=== PATIENT | female | born 1965 | race Caucasian/White ===

== ENCOUNTER → 2019-04-10 13:11 | Outpatient (BNVA) | payer MEDICARE, MEDICAID, SELFPAY | PROVIDERS: Family Provider Family Medicine; PCP Family Medicine; Visit Provider Nurse Practitioner Psychiatric/Mental Health | DX: F25.1 Schizoaffective disorder, depressive type (principal); F12.20 Cannabis dependence, uncomplicated; F43.12 Post-traumatic stress disorder, chronic; F17.290 Nicotine dependence, other tobacco product, uncomplicated | CPT/HCPCS: 99213 ==

== ENCOUNTER 2019-06-03 22:56 | Emergency (ER) | payer MEDICARE, OTHER, SELFPAY ==
[2019-06-03 23:02] VITALS: BP 136/85; PULSE 97; RESP 18; TEMP 37; O2SAT 96; BMI 55.7
--- NOTE | 2019-06-03 23:25 | W.ED.BACK ---
HPI - Back Pain/Injury General: Chief Complaint: Back Pain/Injury Stated Complaint: back pain Time Seen by Provider: 06/03/19 23:05 Source: patient Mode of arrival: ambulatory Limitations: no limitations History of Present Illness: HPI Narrative: Patient is a 54-year-old female who presents to ED today with complaints of lower back pain. Patient states she was seated in her shower when she went to stand up and immediately felt excruciating lower back pain. Patient states she has an extensive history of chronic back pain related to degenerative disc disease. She states she normally tries to treat her pain holistically. Patient reports pain seems to radiate down into bilateral lower extremities. She has not noticed any groin tingling. She has not had any problems defecating or urinating. Pain seems to be worse with ambulation. MD elicited complaint: back pain Pertinent past history: prior back pain Onset (ago): hour(s) Timing: constant Similar Symptoms Previously: Yes Quality: burning and sharp Location: lumbar spine Radiation: left leg below the knee and right leg below the knee Exacerbating factors: movement Relieving factors: none Associated symptoms: Reports no associated symptoms; Deny chills or fever(s) Review of Systems Const: Denies: fever or chills Musc: Reports: back pain; Denies: neck pain, extremity pain, extremity swelling, joint pain or joint swelling Neuro: Denies: headache, numbness in extremities, weakness in extremities or changes in sensation PFS ED PFSH: Medical History (Updated 06/04/19 @ 00:25 by UCHE Don) Asthma Cannabis dependence with current use Chronic post-traumatic stress disorder Diabetic neuropathy associated with type 2 diabetes mellitus Hypertension Nicotine dependence, other tobacco product, uncomplicated Schizoaffective disorder, depressive type with good prognostic features Seasonal allergies Well controlled type 2 diabetes mellitus Social History (Updated 04/10/19 @ 14:03 by Christelle Dumont LPN) Smoking and tobacco status: former smoker Physical Exam Const: COMMON NORMALS: no apparent distress, oriented x3, no limitations and alert NUTRITIONAL APPEARANCE: obese morbidly obese ORIENTATION/CONSCIOUSNESS: Yes oriented to person, Yes oriented to place and Yes oriented to time Back/Pelvis: THORACIC SPINE/UPPER BACK: Yes normal to inspection and No thoracic spinal tenderness LUMBAR SPINE/LOWER BACK: Yes lumbar spinal tenderness Lumbar spinal tenderness location: L4 and L5 SACROILIAC JOINTS: Yes SI joints normal Extremity: COMMON NORMALS: normal to inspection and full ROM Neuro: COMMON NORMALS: oriented x3, moves all extremities, no focal motor deficits, no sensory deficits noted and gait normal (uses rolling walker ) SENSORIUM/ORIENTATION: Yes alert, Yes oriented to person, Yes oriented to place and Yes oriented to time Course Vital Signs: Vital signs: Vital Signs Temperature 98.6 F 06/03/19 23:02 Pulse Rate 97 06/03/19 23:02 Respiratory Rate 18 06/03/19 23:38 Blood Pressure 136/85 06/03/19 23:02 Pulse Oximetry 96 06/03/19 23:38 MDM - Back Pain/Injury MDM Narrative: Medical decision making narrative: Patient does not have any acute neurological deficits at this time. I do not feel emergent CT imaging of her back is warranted as it is overall not going to change my management. Patient reports feeling much better after medications given here. She will be treated with pain medications at home as well as steroids and muscle relaxers. Recommend she follow-up with PCP in approximately a week for continued pain. Discharge Plan Discharge Patient Disposition: Home, Self-Care Clinical Impression: Acute low back pain Qualifiers: Back pain laterality: midline Sciatica presence: without sciatica Qualified Code(s): M54.5 - Low back pain Condition: Stable Prescriptions: New cyclobenzaprine 10 mg tablet 10 mg PO TID Qty: 14 RF: 0 prednisone 10 mg tablet 60 mg PO DAILY 5 Days Qty: 30 RF: 0 hydrocodone-acetaminophen 5-325 mg tablet 1 tab PO Q6H PRN (Reason: pain) Qty: 14 RF: 0 diclofenac sodium 50 mg tablet,delayed release (DR/EC) 50 mg PO Q12H PRN (Reason: pain) Qty: 20 RF: 0 No Action amlodipine 10 mg tablet 10 mg PO QDAY 90 Days Qty: 90 RF: 1 albuterol sulfate 90 mcg/actuation HFA aerosol inhaler 2 puff INHALATION Q6H PRN (Reason: shortness of breath or wheezing) 90 Days Qty: 54 RF: 1 cetirizine 10 mg capsule 10 mg PO DAILY 90 Days Qty: 90 RF: 1 fluticasone propionate 50 mcg/actuation spray,suspension 1 spray INTRANASAL BID 90 Days Qty: 54.6 RF: 1 furosemide [Lasix] 20 mg tablet 20 mg PO QAM PRN (Reason: edema) 90 Days Qty: 60 RF: 1 lisinopril-hydrochlorothiazide 20-12.5 mg tablet 1 tab PO QDAY 90 Days Qty: 90 RF: 1 gabapentin 600 mg tablet 600 mg PO TID 90 Days Qty: 270 RF: 1 fluoxetine [Prozac] 40 mg capsule 80 mg PO QAM Qty: 180 RF: 2 risperidone [Risperdal] 2 mg tablet 2 mg PO BID Qty: 180 RF: 2 trazodone 150 mg tablet 150 mg PO .bedtime PRN (Reason: sleep) Qty: 60 RF: 2 Discharge Orders: Discharge Order (Routine); Ordered 06/04/19 Ordered By: Chantel Man Referrals: Milana Sherwood DO [Family Provider] - Discharge Diet: Usual diet Discharge Activity: Increase activity as tolerated Coding Level of Care Code ED Neurology Stroke Physician for Andrea Fwezra Exam Problem Focused
[2019-06-03] MEDS: dexamethasone 10 mg/mL INJ IM (23:35)
[2019-06-03 23:38] VITALS: RESP 18; O2SAT 96
[2019-06-03] MEDS: morphine 4 mg/mL SDV 1 mL 6 MG IM (23:38)
[2019-06-03] MEDS: ketorolac 60 mg/2 mL INJ IM (23:39)
[2019-06-03] MEDS: orphenadrine 30 mg/mL Inj 2 mL 60 MG IM (23:39)
[2019-06-04 00:49] VITALS: PULSE 94; RESP 18; O2SAT 97
== END 2019-06-04 00:50 | disposition home or self-care (01) ==
PROVIDERS: Emergency Provider Physician Assistant; Family Provider Family Medicine
DX: M54.5 Low back pain (principal); J45.909 Unspecified asthma, uncomplicated; E11.40 Type 2 diabetes mellitus with diabetic neuropathy, unspecified; I10 Essential (primary) hypertension; E66.01 Morbid (severe) obesity due to excess calories; Z68.43 Body mass index [BMI] 50.0-59.9, adult; Z79.51 Long term (current) use of inhaled steroids; Z87.891 Personal history of nicotine dependence
CPT/HCPCS: 12345; 96372; 99281; 99283; J1100; J1885; J2270; J2360

== ENCOUNTER → 2019-07-16 10:44 | Outpatient (BNVA) | payer MEDICARE, MEDICAID, SELFPAY | PROVIDERS: Family Provider Family Medicine; Visit Provider Emergency Medicine | DX: J40 Bronchitis, not specified as acute or chronic (principal); J06.9 Acute upper respiratory infection, unspecified; Z11.59 Encounter for screening for other viral diseases | CPT/HCPCS: 87400; 87635 ==

== ENCOUNTER → 2019-07-28 08:28 | Outpatient (BNVA) | payer MEDICARE, MEDICAID, SELFPAY | PROVIDERS: Family Provider Family Medicine; Visit Provider Nurse Practitioner Psychiatric/Mental Health | DX: F25.1 Schizoaffective disorder, depressive type (principal); F12.20 Cannabis dependence, uncomplicated; F43.12 Post-traumatic stress disorder, chronic; F17.290 Nicotine dependence, other tobacco product, uncomplicated; F17.210 Nicotine dependence, cigarettes, uncomplicated | CPT/HCPCS: 99213 ==

== ENCOUNTER → 2019-11-18 15:42 | Outpatient (BNVA) | payer MEDICAID, SELFPAY | PROVIDERS: Family Provider Family Medicine; Visit Provider Family Medicine | DX: E11.9 Type 2 diabetes mellitus without complications (principal); F25.1 Schizoaffective disorder, depressive type; J44.9 Chronic obstructive pulmonary disease, unspecified; I10 Essential (primary) hypertension | CPT/HCPCS: 80053; 80061; 83036; 85025 ==

== ENCOUNTER 2019-11-21 22:00 | Emergency (ER) | payer MEDICARE, MEDICAID, SELFPAY ==
[2019-11-21 22:15] VITALS: BP 156/86; PULSE 70; RESP 18; TEMP 36.4; O2SAT 95
--- NOTE | 2019-11-22 00:45 | W.ED.BACK ---
HPI - Back Pain/Injury General: Chief Complaint: Back Pain/Injury Stated Complaint: back pain Time Seen by Provider: 11/22/19 00:45 Source: patient Mode of arrival: ambulatory Limitations: no limitations History of Present Illness: HPI Narrative: Patient comes in today for complaints of low back pain. Patient had put a cabinet on the back of her pickup truck when the top drawer came out causing her to fall back onto her butt. Since then patient has had some increased back pain. Patient appears well. Patient does have a history of chronic back pain. MD elicited complaint: back injury and fall Review of Systems General: Reports: 10 or more systems reviewed and unremarkable except in HPI and below Musc: Reports: back pain PFS ED PFSH: Medical History (Updated 11/22/19 @ 02:16 by REBEKA Butcher) Asthma Cannabis dependence with current use Chronic post-traumatic stress disorder Diabetic neuropathy associated with type 2 diabetes mellitus Hypertension Nicotine dependence, cigarettes, uncomplicated Schizoaffective disorder, depressive type with good prognostic features Seasonal allergies Well controlled type 2 diabetes mellitus Family History Mother Hypertension Hyperlipidemia Cancer Father Hypertension Hyperlipidemia Grandfather Diabetes Hyperlipidemia Cancer Grandmother Diabetes Hyperlipidemia Cancer Social History Smoking and tobacco status: former smoker Second hand smoke exposure: No Alcohol intake: current Alcohol intake frequency: holidays/special occasions only Desire information about alcohol rehabilitation?: No Counseling given: No Desire information about substance/drug rehabilitation?: No Marital status: / History of recent travel: No Current gender identity: Female Female Reproductive History: Spontaneous abortions: No Physical Exam Const: COMMON NORMALS: no acute distress and patient oriented x3 GENERAL APPEARANCE: cooperative HENMT: COMMON NORMALS: normocephalic and Normal external nose present HEAD & SCALP: normal to inspection and normocephalic NOSE: Normal external nose present MOUTH: Normal oral and palatal mucosa present Eye: GENERAL EYE: appearance normal, both eyes and all related structures Neck/C-Spine: COMMON NORMALS: full ROM Chest: COMMONS NORMALS: normal inspection of the chest Resp: COMMON NORMALS: normal respiratory effort EFFORT & INSPECTION: Yes able to speak in complete sentences Cardio: COMMON NORMALS: regular rate and regular rhythm RATE: regular rate RHYTHM: regular rhythm GI: COMMON NORMALS: non-tender Back/Pelvis: THORACIC SPINE/UPPER BACK: Yes paraspinal muscle tenderness LUMBAR SPINE/LOWER BACK: Yes lumbar spinal tenderness Lumbar spinal tenderness location: L5 (l5-s1) and Yes paraspinal muscle tenderness Extremity: COMMON NORMALS: normal to inspection Neuro: COMMON NORMALS: patient oriented x3 and moves all extremities Psych: COMMON NORMALS: mental status grossly normal and cooperative Skin: COMMON NORMALS: no rashes or lesions noted GENERAL SKIN EXAM: no rashes or lesions noted Course Vital Signs: Vital signs: Vital Signs Temperature 97.6 F 11/21/19 22:15 Pulse Rate 78 11/22/19 02:00 Respiratory Rate 18 11/22/19 02:00 Blood Pressure 151/86 11/22/19 02:00 Pulse Oximetry 93 11/22/19 02:00 MDM - Back Pain/Injury MDM Narrative: Medical decision making narrative: Patient comes in for evaluation of back pain after a fall this afternoon. On exam patient has muscle tenderness in her thoracic and lumbar spine. No vertebral point tenderness is noted. Patient does report some tenderness at the L5-S1 area. Patient is guarded with movement due to back pain. Differential diagnosis includes compression fracture of the vertebra, muscle strain, intervertebral disc disease, facet arthropathy. X-ray noted no fracture. Patient was given an injection of Toradol and orphenadrine and 1 hydrocodone 5?3 25. Reviewed exam with patient with recommendations for treatment and follow-up. Patient reported understanding agreed to plan. Reassured patient no fracture was noted that this is probably a aggravation of her chronic back problems, patient reports understanding. Discharge Plan Discharge Patient Disposition: Home Clinical Impression: Degeneration, intervertebral disc, lumbar Fall Qualifiers: Encounter type: initial encounter Qualified Code(s): W19.XXXA - Unspecified fall, initial encounter Back pain Qualifiers: Back pain location: low back pain Chronicity: unspecified Back pain laterality: unspecified Sciatica presence: without sciatica Qualified Code(s): M54.5 - Low back pain Condition: Stable Prescriptions: New hydrocodone-acetaminophen 5-325 mg tablet 1 tab PO Q8H PRN (Reason: pain (scale score 7-10)) Qty: 15 RF: 0 tizanidine 4 mg tablet 4 mg PO Q8H PRN (Reason: muscle spasticity) Qty: 15 RF: 0 No Action trazodone 150 mg tablet 150 mg PO .bedtime PRN (Reason: sleep) Qty: 180 RF: 2 risperidone [Risperdal] 2 mg tablet 2 mg PO BID Qty: 180 RF: 2 fluoxetine [Prozac] 40 mg capsule 80 mg PO QAM Qty: 180 RF: 2 amlodipine 10 mg tablet 10 mg PO QDAY 90 Days Qty: 90 RF: 1 cetirizine 10 mg capsule 10 mg PO DAILY 90 Days Qty: 90 RF: 1 fluticasone propionate 50 mcg/actuation spray,suspension 1 spray INTRANASAL BID 90 Days Qty: 54.6 RF: 1 furosemide [Lasix] 20 mg tablet 20 mg PO QAM PRN (Reason: edema) 90 Days Qty: 60 RF: 1 lisinopril-hydrochlorothiazide 20-12.5 mg tablet 1 tab PO QDAY 90 Days Qty: 90 RF: 1 gabapentin 600 mg tablet 600 mg PO TID 90 Days Qty: 270 RF: 1 risperidone 1 mg tablet 1 mg PO .3x day RF: 0 cyclobenzaprine 10 mg tablet 10 mg PO TID Qty: 14 RF: 0 hydrocodone-acetaminophen 5-325 mg tablet 1 tab PO Q6H PRN (Reason: pain) Qty: 14 RF: 0 diclofenac sodium 50 mg tablet,delayed release (DR/EC) 50 mg PO Q12H PRN (Reason: pain) Qty: 20 RF: 0 Discharge Orders: Discharge Order (Routine); Ordered 11/22/19 Ordered By: Felton Palmer Referrals: Sandy Mae MD [Primary Care Provider] - Discharge Diet: Usual diet Discharge Activity: Increase activity as tolerated Patient Instructions: Acute Low Back Pain (ED) Activity Restrictions/Additional Instructions: Continue with routine medications. Use hydrocodone as needed for breakthrough pain. Follow-up with primary care for recheck in 1 week. Return to the emergency department for new concerns. Coding Level of Care Code ED Orthopedic Shoes Salesperson for Andrea Fwd Exam Comprehensive
[2019-11-22 00:57] VITALS: BP 156/86; PULSE 77; RESP 17; O2SAT 92
--- NOTE | 2019-11-22 01:00 | XRR_ITS ---
PROCEDURE INFORMATION: Exam: XR Lumbosacral Spine, 2 or 3 Views Exam date and time: 11/22/2019 1:54 AM Age: 54 years old Clinical indication: Injury or trauma; Fall; Initial encounter; Blunt trauma (contusions or hematomas) TECHNIQUE: Imaging protocol: XR of the lumbosacral spine, 2 or 3 views. COMPARISON: CT Abdomen/Pelvis Renal [id number] 07/15/2016 7:30 PM FINDINGS: Vertebrae: Normal. No acute fracture. Normal alignment. Straightening of the lumbar curve is present suggesting spasm versus positioning. Osteophytes are seen at multiple levels. The disc heights are reduced from L1-S1 level. Soft tissues: Unremarkable. XR/XR lumbar spine 2-3V* [id number] IMPRESSION: No fracture or subluxation is seen. Extensive degenerative changes are present.
[2019-11-22] MEDS: HYDROcodone-acetaminophen 7.5-325 mg Tablet 1 TAB PO (01:20)
[2019-11-22] MEDS: ketorolac 30 mg/mL INJ IM (01:21)
[2019-11-22] MEDS: orphenadrine 30 mg/mL Inj 2 mL 60 MG IM (01:23)
[2019-11-22 02:00] VITALS: BP 151/86; PULSE 78; RESP 18; O2SAT 93
[2019-11-22 02:31] VITALS: BP 138/93; PULSE 77; RESP 18; TEMP 36.4; O2SAT 98
== END 2019-11-22 02:32 | disposition home or self-care (01) ==
PROVIDERS: Emergency Provider Nurse Practitioner Family; PCP Family Medicine
DX: M51.36 Other intervertebral disc degeneration, lumbar region (principal); E11.40 Type 2 diabetes mellitus with diabetic neuropathy, unspecified; I10 Essential (primary) hypertension; Z87.891 Personal history of nicotine dependence
CPT/HCPCS: 12345; 72100; 96372; 99281; 99283; J1885; J2360

== ENCOUNTER → 2019-11-24 08:10 | Outpatient (BNVA) | payer MEDICARE, MEDICAID, SELFPAY | PROVIDERS: PCP Family Medicine; Visit Provider Nurse Practitioner Psychiatric/Mental Health | DX: F25.1 Schizoaffective disorder, depressive type (principal); F12.20 Cannabis dependence, uncomplicated; F43.12 Post-traumatic stress disorder, chronic | CPT/HCPCS: 99214 ==

== ENCOUNTER → 2019-12-05 10:15 | Outpatient (BNVA) | payer MEDICARE, MEDICAID, SELFPAY | PROVIDERS: PCP Family Medicine; Visit Provider Emergency Medicine | DX: I05.9 Rheumatic mitral valve disease, unspecified (principal); R60.9 Edema, unspecified; E11.9 Type 2 diabetes mellitus without complications; E78.5 Hyperlipidemia, unspecified; I10 Essential (primary) hypertension; J45.20 Mild intermittent asthma, uncomplicated | CPT/HCPCS: 80048; 80061; 83880 ==

== ENCOUNTER → 2019-12-17 10:13 | Outpatient (BNVA) | payer MEDICARE, SELFPAY | PROVIDERS: Family Provider Family Medicine; Visit Provider Family Medicine | DX: I50.9 Heart failure, unspecified (principal) | CPT/HCPCS: 80048 ==

== ENCOUNTER → 2019-12-22 07:57 | Outpatient (BNVA) | payer MEDICARE, MEDICAID, SELFPAY | PROVIDERS: Family Provider Family Medicine; Visit Provider Nurse Practitioner Psychiatric/Mental Health | DX: F25.1 Schizoaffective disorder, depressive type (principal); F12.20 Cannabis dependence, uncomplicated; F43.12 Post-traumatic stress disorder, chronic | CPT/HCPCS: 99214 ==

== ENCOUNTER 2020-03-12 19:46 | Emergency (ER) | payer MEDICARE, MEDICAID, SELFPAY ==
[2020-01-09 14:42] VITALS: BP 120/78; BMI 60.8
[2020-03-12 19:49] VITALS: BP 153/106; PULSE 91; RESP 18; O2SAT 94; BMI 60.2
--- NOTE | 2020-03-12 19:56 | PC.NURSE ---
placed in adult c-collar
[2020-03-12 20:10] VITALS: BP 137/80; TEMP 36.7
--- NOTE | 2020-03-12 20:27 | CTR_ITS ---
PROCEDURE INFORMATION: Exam: CT Lumbar Spine Without Contrast Exam date and time: 03/12/2020 8:41 PM Age: 55 years old Clinical indication: Low back pain; Prior surgery; Patient HX: Fall out of truck this p. M. C/O back pain with bilateral leg numbness. ; Additional info: Fall, back pain, paresthesia TECHNIQUE: Imaging protocol: Computed tomography images of the lumbar spine without contrast. Radiation optimization: All CT scans at this facility use at least one of these dose optimization techniques: automated exposure control; mA and/or kV adjustment per patient size (includes targeted exams where dose is matched to clinical indication); or iterative reconstruction. COMPARISON: CR XR lumbar spine 2-3V* [id number] 11/22/2019 1:39 AM RADIATION DOSE METRICS: Total DLP (mGy-cm): 2137.22 FINDINGS: The vertebral bodies are normally aligned. There is no evidence of fracture or subluxation. The vertebral bodies are of normal height. There is disc space narrowing throughout the lumbar spine. There is endplate spurring. There are degenerative changes of facet joints. There are degenerative changes about the sacroiliac joints. Bony sacrum appears intact. There is posterior osseous ridging and disc bulging at L1-L2, L2-L3 and L3-L4. There is diffuse disc bulging at L4-L5. There is posterior osseous ridging and disc bulging at L5/S1. There is moderate central stenosis at L1-L2. There is moderate central stenosis at L2-L3. There is severe central stenosis at L3-L4 and L4-L5. There is moderate central stenosis at L5/S1 CT/CT lumbar spine wo con* [id number] IMPRESSION: 1. There is no evidence of fracture or subluxation. 2. Spondylitic and discogenic changes producing severe central stenosis at L3-L4 and L4-L5. There is also moderate central stenosis at L1-L2, L2-L3 and L5/S1 Radiation Dose CTDIVOL = (mGy): DLP = 2137.22 (mGy-cm)
--- NOTE | 2020-03-12 20:27 | CTR_ITS ---
PROCEDURE INFORMATION: Exam: CT Thoracic Spine Without Contrast Exam date and time: 03/12/2020 8:41 PM Age: 55 years old Clinical indication: Pain in thoracic spine; Patient HX: Fall out of truck this p. M. C/O back pain with bilateral leg numbness. ; Additional info: Fall, back pain, paresthesia TECHNIQUE: Imaging protocol: Computed tomography images of the thoracic spine without contrast. Radiation optimization: All CT scans at this facility use at least one of these dose optimization techniques: automated exposure control; mA and/or kV adjustment per patient size (includes targeted exams where dose is matched to clinical indication); or iterative reconstruction. COMPARISON: CR Thoracic Spine 3+ views* [id number] 03/31/2013 10:27 AM RADIATION DOSE METRICS: Total DLP (mGy-cm): 3058.51 FINDINGS: The vertebral bodies are normally aligned. There is no evidence of fracture or subluxation. The vertebral bodies are of normal height. There is desiccation of the discs of the lower thoracic spine. There is endplate spurring at multiple levels. There is suggestion of a hemangioma involving T6. Pedicles are intact. There is no paravertebral soft tissue mass. There is no evidence for traumatic disc protrusion. There is no significant central stenosis. There is no evidence for epidural hematoma. CT/CT thoracic spin wo con* [id number] IMPRESSION: There is no evidence of fracture or subluxation. Radiation Dose CTDIVOL = (mGy): DLP = 3058.51 (mGy-cm)
--- NOTE | 2020-03-12 20:27 | CTR_ITS ---
PROCEDURE INFORMATION: Exam: CT Cervical Spine Without Contrast Exam date and time: 03/12/2020 8:41 PM Age: 55 years old Clinical indication: Neck pain; Patient HX: Fall out of truck this p. M. C/O back pain with bilateral leg numbness. ; Additional info: Fall, neck pain, paresthesia TECHNIQUE: Imaging protocol: Computed tomography images of the cervical spine without contrast. Radiation optimization: All CT scans at this facility use at least one of these dose optimization techniques: automated exposure control; mA and/or kV adjustment per patient size (includes targeted exams where dose is matched to clinical indication); or iterative reconstruction. COMPARISON: No relevant prior studies available. RADIATION DOSE METRICS: Total DLP (mGy-cm): 872.96 FINDINGS: The vertebral bodies are normally aligned. There is no evidence of fracture or subluxation. The vertebral bodies are of normal height. The disc spaces are well-maintained. There is anterior endplate spurring at multiple levels. The prevertebral soft tissues and the predental space are unremarkable. There is no significant central stenosis. There is no evidence for epidural hematoma. There are degenerative changes of facet joints and uncovertebral joints. The lung apices are clear. There is a 10 mm hypodensity within the right lobe of the thyroid gland. This does not require any further follow-up based on size criteria. CT/CT cervical spin wo con* [id number] IMPRESSION: There is no evidence of fracture or subluxation. Radiation Dose CTDIVOL = (mGy): DLP = 872.96 (mGy-cm)
[2020-03-12 20:41] VITALS: RESP 16
[2020-03-12] MEDS: fentaNYL 50 mcg/mL INJ 2mL 100 MCG IVP (20:41)
[2020-03-12 21:39] VITALS: BP 142/75; PULSE 80; RESP 16; O2SAT 92
--- NOTE | 2020-03-12 22:14 | ED_ITS ---
HPI - Back Pain/Injury General: Chief Complaint: Back Pain/Injury Stated Complaint: fall/can't feel feet/arm Time Seen by Provider: 03/12/20 20:14 Source: patient Mode of arrival: ambulatory Limitations: no limitations History of Present Illness: HPI Narrative: Patient is a 55-year-old with a history of chronic back pain and has had some back surgery, spinal back injections and nerve ablations. She was sitting in a diesel truck and opened the back door and since fell out of the truck. She fell from a height of about 3 feet. She landed on her buttocks and immediately had pain from her lower spine to her neck. She did not hit her head and did not lose consciousness. When she fell she had a whiplash kind of movement of her neck. She is here to be evaluated. She does have some tingling and paresthesia in her left upper extremity as well as some numbness in her lower extremities. No fecal or urinary incontinence. No perianal anesthesia MD elicited complaint: back pain and fall Pertinent past history: prior back pain Onset (ago): hour(s) (3) Timing: constant Severity: severe Quality: sharp Location: lumbar spine and thoracic spine Radiation: none Exacerbating factors: movement Relieving factors: none Context: fall Associated symptoms: Reports arthralgias, difficulty walking, numbness and tingling/numbness/burning; Deny abdominal pain, chills, change in bowel habits, dysuria, fatigue, fecal incontinence, fever(s), hematuria, myalgias, nausea, syncope, urinary frequency, urinary urgency, vomiting or weakness Review of Systems General: Reports: 10 or more systems reviewed and unremarkable except in HPI and below Const: Denies: fever(s), chills or fatigue Eyes: Denies: change in vision or blurry vision ENMT: Denies: throat pain, enlarged tonsils, odynophagia, hoarseness, mouth pain or swelling of lips/tongue Card: Denies: syncope Resp: Denies: dyspnea, productive cough or non-productive cough GI: Denies: abdominal pain, nausea, vomiting, fecal incontinence or change in bowel habits : Denies: dysuria, urinary urgency or hematuria Musc: Denies: neck pain, back pain or extremity swelling Skin/Breast: Denies: rash, pruritus or erythema Neuro: Reports: difficulty walking Endo: Denies: polyuria, polydipsia or tired all the time PFSH ED PFSH: Medical History Asthma Cannabis dependence with current use CHF (congestive heart failure) Chronic post-traumatic stress disorder Diabetic neuropathy associated with type 2 diabetes mellitus Hyperlipidemia Hypertension Mitral valve disease Peripheral edema Schizoaffective disorder, depressive type with good prognostic features Seasonal allergies Well controlled type 2 diabetes mellitus Family History Mother Hypertension Hyperlipidemia Cancer Father Hypertension Hyperlipidemia Grandfather Diabetes Hyperlipidemia Cancer Grandmother Diabetes Hyperlipidemia Cancer Social History Smoking and tobacco status: former smoker Second hand smoke exposure: No Alcohol intake: current Alcohol intake frequency: holidays/special occasions only Desire information about alcohol rehabilitation?: No Counseling given: No Desire information about substance/drug rehabilitation?: No Marital status: / History of recent travel: No Current gender identity: Female Female Reproductive History: Spontaneous abortions: No Physical Exam Const: COMMON NORMALS: no acute distress, average body habitus, patient oriented x3, no limitations, healthy appearing, alert and well nourished HENMT: COMMON NORMALS: normocephalic, atraumatic and moist oral mucous membranes HEAD & SCALP: normocephalic and atraumatic Eye: COMMON NORMALS: Equal, round and reactive pupils present, EOMs intact bilaterally, conjunctivae normal and no scleral icterus CONJUNCTIVA: Yes conjunctivae normal PUPIL: Yes Equal, round and reactive pupils present Neck/C-Spine: COMMON NORMALS: full ROM, supple, no meningeal signs, no JVD and No carotid bruits CERVICAL SPINE: Yes pain with cervical ROM, Yes Cervical spine tenderness, No step off deformity and Yes Paracervical muscle tenderness Resp: COMMON NORMALS: normal respiratory effort, No retractions, No use of accessory muscles, clear to auscultation bilaterally and percussion normal AUSCULTATION: clear to auscultation bilaterally PERCUSSION: percussion normal Cardio: COMMON NORMALS: no JVD, regular rate, regular rhythm, S1 normal heart sound present, S2 normal heart sound present, No gallops present (Cardio), No clicks present (Cardio), No murmurs present (Cardio), No rub (Cardio) and Peripheral pulses 2+ throughout RATE: regular rate RHYTHM: regular rhythm HEART SOUNDS: S1 normal heart sound present and S2 normal heart sound present PERIPHERAL PULSES: Peripheral pulses 2+ throughout GI: COMMON NORMALS: Normal to inspection, nondistended, normoactive bowel sounds present, Soft to palpation, non-tender, No hepatosplenomegaly present, no masses and no bruits PALPATION: Yes Soft to palpation and Yes No hepatos plenomegaly present Back/Pelvis: THORACIC SPINE/UPPER BACK: Yes thoracic ROM normal and Yes parasp inal muscle tenderness LUMBAR SPINE/LOWER BACK: Yes lumbar spinal tenderness and Yes paraspinal muscle tenderness Extremity: COMMON NORMALS: normal to inspection, full ROM, capillary refill normal, no calf tenderness and no pedal edema Neuro: COMMON NORMALS: patient oriented x3 SENSORIUM/ORIENTATION: Yes alert MENINGEAL SIGNS: Yes no meningeal signs Skin: COMMON NORMALS: no rashes or lesions noted, no wounds, turgor normal, no jaundice, no petechiae and no mottling GENERAL SKIN EXAM: no rashes or lesions noted and turgor normal Course Reevaluation(s): Reevaluation #1: Discussed her imaging findings with her. Negative for acute fracture or dislocation. She does have some stenosis of the lumbar spine but those are chronic. Her pain is much improved although she still has some paresthesias. I believe that is probably due to neuropraxia and I expect she should recover. I explained to her things to look out for including fecal or urinary incontinence, leg weakness, which would be a sign of spinal cord injury. If she has any of those symptoms she needs to be seen emergently. She voiced understanding and is in agreement with the plan. We will discharge her home with a prescription for some pain medicine. Time: 22:14 Vital Signs: Vital signs: Vital Signs Temperature 98.0 F 03/12/20 20:10 Pulse Rate 79 03/12/20 22:30 Respiratory Rate 16 03/12/20 22:30 Blood Pressure 127/78 03/12/20 22:30 Pulse Oximetry 91 03/12/20 22:30 MDM - Back Pain/Injury MDM Narrative: Medical decision making narrative: 55-year-old female patient with chronic back pain who fell about 3 feet from a truck and landed on her buttocks. She had a lot of pain and some paresthesia and numbness. Evaluation in the emergency department with CT of her cervical spine, lumbar spine, thoracic spine were all negative for acute fracture or dislocation. She has chronic changes in her lumbar spine. Pain improved with pain medication and she is discharged home with a prescription for pain medication. I believe her neurologic symptoms are probably neuropraxia from the fall. She is to follow-up with her primary care provider or return for any concerns. Medical Records: Attestation: I reviewed the patient's medical records. Imaging Data^: Other CT: Radiologist's impression: [employer] [place] [address] CT Scan Report Signed Patient: Beryl Mclain #: [id number] : 1965Acct#:[id number] Age/Sex: 55 / FADM Date: 03/12/20 Loc: ERRoom/Bed: Attending Dr: Ordering Provider/Ordering MD: Bharath Avila MD, [facility] [place] Date of Service: 03/12/20 Procedure(s): CT cervical spin wo con* [id number] Accession Number(s): [id number] Report Number: [id number] PROCEDURE INFORMATION: Exam: CT Cervical Spine Without Contrast Exam date and time: 03/12/2020 8:41 PM Age: 55 years old Clinical indication: Neck pain; Patient HX: Fall out of truck this p. M. C/O back pain with bilateral leg numbness. ; Additional info: Fall, neck pain, paresthesia TECHNIQUE: Imaging protocol: Computed tomography images of the cervical spine without contrast. Radiation optimization: All CT scans at this facility use at least one of these dose optimization techniques: automated exposure control; mA and/or kV adjustment per patient size (includes targeted exams where dose is matched to clinical indication); or iterative reconstruction. COMPARISON: No relevant prior studies available. RADIATION DOSE METRICS: Total DLP (mGy-cm): 872.96 FINDINGS: The vertebral bodies are normally aligned. There is no evidence of fracture or subluxation. The vertebral bodies are of normal height. The disc spaces are well-maintained. There is anterior endplate spurring at multiple levels. The prevertebral soft tissues and the predental space are unremarkable. There is no significant central stenosis. There is no evidence for epidural hematoma. There are degenerative changes of facet joints and uncovertebral joints. The lung apices are clear. There is a 10 mm hypodensity within the right lobe of the thyroid gland. This does not require any further follow-up based on size criteria. CT/CT cervical spin wo con* [id number] IMPRESSION: There is no evidence of fracture or subluxation. Radiation Dose CTDIVOL = (mGy): DLP = 872.96 (mGy-cm) Dictated By:Mega Nice MD Signed By:Mega Nice MDSigned Date/Time:03/12/202121 DD/ [address] [employer] [address] [address] Scan Report Signed Patient: Beryl Mclain AUnstella #: [id number] : 1965Acct#:[id number] Age/Sex: 55 / FADM Date: 03/12/20 Loc: ERRoom/Bed: Attending Dr: Ordering Provider/Ordering MD: Bharath Avila MD, [facility] [place] Date of Service: 03/12/20 Procedure(s): CT lumbar spine wo con* [id number] Accession Number(s): [id number] Report Number: [id number] PROCEDURE INFORMATION: Exam: CT Lumbar Spine Without Contrast Exam date and time: 03/12/2020 8:41 PM Age: 55 years old Clinical indication: Low back pain; Prior surgery; Patient HX: Fall out of truck this p. M. C/O back pain with bilateral leg numbness. ; Additional info: Fall, back pain, paresthesia TECHNIQUE: Imaging protocol: Computed tomography images of the lumbar spine without contrast. Radiation optimization: All CT scans at this facility use at least one of these dose optimization techniques: automated exposure control; mA and/or kV adjustment per patient size (includes targeted exams where dose is matched to clinical indication); or iterative reconstruction. COMPARISON: CR XR lumbar spine 2-3V* [id number] 11/22/2019 1:39 AM RADIATION DOSE METRICS: Total DLP (mGy-cm): 2137.22 FINDINGS: The vertebral bodies are normally aligned. There is no evidence of fracture or subluxation. The vertebral bodies are of normal height. There is disc space narrowing throughout the lumbar spine. There is endplate spurring. There are degenerative changes of facet joints. There are degenerative changes about the sacroiliac joints. Bony sacrum appears intact. There is posterior osseous ridging and disc bulging at L1-L2, L2-L3 and L3-L4. There is diffuse disc bulging at L4-L5. There is posterior osseous ridging and disc bulging at L5/S1. There is moderate central stenosis at L1-L2. There is moderate central stenosis at L2-L3. There is severe central stenosis at L3-L4 and L4-L5. There is moderate central stenosis at L5/S1 CT/CT lumbar spine wo con* [id number] IMPRESSION: 1. There is no evidence of fracture or subluxation. 2. Spondylitic and discogenic changes producing severe central stenosis at L3-L4 and L4-L5. There is also moderate central stenosis at L1-L2, L2-L3 and L5/S1 Radiation Dose CTDIVOL = (mGy): DLP = 2137.22 (mGy-cm) Dictated By:Mega Nice MD Signed By:Mega Nice MDSigned Date/Time:03/12/202127 DD/ [address] [address] [address] Scan Report Signed Patient: Beryl Mclain AUnit #: [id number] : 1965Acct#:[id number] Age/Sex: 55 / FADM Date: 03/12/20 Loc: ERRoom/Bed: Attending Dr: Ordering Provider/Ordering MD: Bharath Avila MD, [facility] [place] Date of Service: 03/12/20 Procedure(s): CT thoracic spin wo con* [id number] Accession Number(s): [id number] Report Number: [id number] PROCEDURE INFORMATION: Exam: CT Thoracic Spine Without Contrast Exam date and time: 03/12/2020 8:41 PM Age: 55 years old Clinical indication: Pain in thoracic spine; Patient HX: Fall out of truck this p. M. C/O back pain with bilateral leg numbness. ; Additional info: Fall, back pain, paresthesia TECHNIQUE: Imaging protocol: Computed tomography images of the thoracic spine without contrast. Radiation optimization: All CT scans at this facility use at least one of these dose optimization techniques: automated exposure control; mA and/or kV adjustment per patient size (includes targeted exams where dose is matched to clinical indication); or iterative reconstruction. COMPARISON: CR Thoracic Spine 3+ views* [id number] 03/31/2013 10:27 AM RADIATION DOSE METRICS: Total DLP (mGy-cm): 3058.51 FINDINGS: The vertebral bodies are normally aligned. There is no evidence of fracture or subluxation. The vertebral bodies are of normal height. There is desiccation of the discs of the lower thoracic spine. There is endplate spurring at multiple levels. There is suggestion of a hemangioma involving T6. Pedicles are intact. There is no paravertebral soft tissue mass. There is no evidence for traumatic disc protrusion. There is no significant central stenosis. There is no evidence for epidural hematoma. CT/CT thoracic spin wo con* [id number] IMPRESSION: There is no evidence of fracture or subluxation. Radiation Dose CTDIVOL = (mGy): DLP = 3058.51 (mGy-cm) Dictated By:Mega Nice MD Signed By:Mega Nice MDSigned Date/Time:03/12/202125 DD/ 23 Discharge Plan Discharge Patient Disposition: Home Clinical Impression: Neurapraxia Fall from stationary vehicle Qualifiers: Encounter type: initial encounter Qualified Code(s): W17.89XA - Other fall from one level to another, initial encounter Back pain Qualifiers: Back pain location: low back pain Chronicity: acute Back pain laterality: unspecified Sciatica presence: without sciatica Qualified Code(s): M54.5 - Low back pain Condition: Stable Prescriptions: [place] 5-325 mg tablet 1 tab PO Q8H PRN (Reason: pain) Qty: 20 RF: 0 Continued furosemide 40 mg tablet 40 mg PO DAILY 90 Days Qty: 90 RF: 1 tizanidine 4 mg tablet 4 mg PO Q8H PRN (Reason: muscle spasticity) Qty: 15 RF: 0 multivitamin Tablet 1 tab PO DAILY@08 RF: 0 garlic Tablet 500 mg PO DAILY@ RF: 0 Prozac 40 mg capsule 40 mg PO DAILY@08 RF: 0 Advair Diskus 250-50 mcg/dose blister with device 1 inh INHALATION BID@ RF: 0 gabapentin 600 mg tablet 600 mg PO TID@, RF: 0 lisinopril-hydrochlorothiazide 20-12.5 mg tablet 1 tab PO DAILY@08 RF: 0 Zaditor 0.025 % (0.035 %) drops 1 drop ophthalmic (eye) BID@ RF: 0 Risperdal 2 mg tablet 2 mg PO DAILY@ RF: 0 amlodipine 10 mg tablet 10 mg PO DAILY@ RF: 0 Lidoderm 5 % adhesive patch,medicated See Rx Instructions .ROUTE .COMPLEX RF: 0 hydroxyzine HCl 25 mg tablet 25 mg PO TID@,, PRN (Reason: anxiety) RF: 0 fluticasone propionate 50 mcg/actuation spray,suspension 1 spray INTRANASAL BID@ RF: 0 cetirizine 10 mg capsule 10 mg PO DAILY@ RF: 0 Lipitor 40 mg Tablet See Rx Instructions .ROUTE .COMPLEX RF: 0 ibuprofen 200 mg Tablet 800 mg PO TID@ RF: 0 turmeric root extract 500 mg Capsule 1,000 mg PO BID@ RF: 0 red yeast rice 600 mg Tablet 1,200 - 1,800 mg PO DAILY@ RF: 0 Kratom Powder See Rx Instructions .ROUTE .COMPLEX RF: 0 Discontinued diphenhydramine-acetaminophen [Tylenol PM Extra Strength] 25-500 mg Tablet 2 tab PO DAILY@ RF: 0 Discharge Orders: Discharge ED (Routine); Ordered 03/12/20 Ordered By: Bharath Avila Referrals: Milana Sherwood DO [Primary Care Provider] - 1-3 days Discharge Diet: Usual diet Discharge Activity: Increase activity as tolerated Patient Instructions: Acute Low Back Pain (ED), Neurapraxia (ED), Fall Prevention (ED) Activity Restrictions/Additional Instructions: Return for any new or worsening symptoms. Gradually return to your prior levels of activities. Your pain is going to get worse over the next 2 to 3 days before it gradually starts to feel better. Take the pain medication as needed for severe pain. Take ibuprofen as needed for mild to moderate pain. Coding Level of Care Code ED [employer] Professor for Andrea Coto
[2020-03-12 22:30] VITALS: BP 127/78; PULSE 79; RESP 16; O2SAT 91
== END 2020-03-12 22:32 | disposition home or self-care (01) ==
PROVIDERS: Emergency Provider Family Medicine; PCP Family Medicine
DX: M54.5 Low back pain (principal); R20.0 Anesthesia of skin; T14.8XXA Other injury of unspecified body region, initial encounter; I11.0 Hypertensive heart disease with heart failure; I50.9 Heart failure, unspecified; E11.40 Type 2 diabetes mellitus with diabetic neuropathy, unspecified; E78.5 Hyperlipidemia, unspecified; Z87.891 Personal history of nicotine dependence; W17.89XA Other fall from one level to another, initial encounter
CPT/HCPCS: 72125; 72128; 72131; 99282; J3010

== ENCOUNTER → 2020-03-22 14:31 | Outpatient (BNVA) | payer MEDICARE, SELFPAY ==
[2020-01-09 14:42] VITALS: BP 120/78; BMI 60.8
== END ==
PROVIDERS: PCP Family Medicine; Visit Provider Nurse Practitioner Family
DX: Z20.828 Contact with and (suspected) exposure to other viral communicable diseases (principal); J06.9 Acute upper respiratory infection, unspecified
CPT/HCPCS: 87635

== ENCOUNTER → 2020-04-06 16:05 | Outpatient (BNVA) | payer MEDICARE, MEDICAID, SELFPAY ==
[2020-01-09 14:42] VITALS: BP 120/78; BMI 60.8
== END ==
PROVIDERS: PCP Family Medicine; Visit Provider Nurse Practitioner Family
DX: M25.532 Pain in left wrist (principal); M19.032 Primary osteoarthritis, left wrist
CPT/HCPCS: 73110

== ENCOUNTER 2020-04-13 10:51 | Outpatient (CLI) | payer MEDICARE, MEDICAID, SELFPAY ==
[2020-01-09 14:42] VITALS: BP 120/78; BMI 60.8
== END 2020-04-13 10:52 | disposition home or self-care (01) ==
LOC: SPT 10:52
PROVIDERS: PCP Family Medicine; Visit Provider Orthopaedic Surgery
DX: Z46.89 Encounter for fitting and adjustment of other specified devices (principal); M19.032 Primary osteoarthritis, left wrist; S63.502D Unspecified sprain of left wrist, subsequent encounter; X58.XXXD Exposure to other specified factors, subsequent encounter
CPT/HCPCS: 97760; L3908

== ENCOUNTER → 2020-05-26 10:20 | Outpatient (BNVA) | payer MEDICARE, MEDICAID, SELFPAY ==
[2020-01-09 14:42] VITALS: BP 120/78; BMI 60.8
== END ==
PROVIDERS: PCP Family Medicine; Visit Provider Family Medicine
DX: E11.9 Type 2 diabetes mellitus without complications (principal); I10 Essential (primary) hypertension; J30.2 Other seasonal allergic rhinitis; M62.830 Muscle spasm of back; E11.42 Type 2 diabetes mellitus with diabetic polyneuropathy; J45.20 Mild intermittent asthma, uncomplicated; I50.9 Heart failure, unspecified; E78.49 Other hyperlipidemia; I05.9 Rheumatic mitral valve disease, unspecified; F25.1 Schizoaffective disorder, depressive type
CPT/HCPCS: 80053; 83036

== ENCOUNTER → 2020-07-30 09:19 | Outpatient (BNVA) | payer MEDICARE, MEDICAID, SELFPAY ==
[2020-07-19 16:09] VITALS: BP 120/78; BMI 60.8
== END ==
PROVIDERS: PCP Family Medicine; Visit Provider Nurse Practitioner Psychiatric/Mental Health
DX: F25.1 Schizoaffective disorder, depressive type (principal); F12.20 Cannabis dependence, uncomplicated; F43.12 Post-traumatic stress disorder, chronic
CPT/HCPCS: 99214

== ENCOUNTER → 2020-10-06 14:04 | Outpatient (BNVA) | payer OTHER, SELFPAY ==
[2020-07-19 16:09] VITALS: BP 120/78; BMI 60.8
== END ==
PROVIDERS: Visit Provider Nurse Practitioner Psychiatric/Mental Health
DX: F25.1 Schizoaffective disorder, depressive type (principal)
CPT/HCPCS: 80061; 83036

== ENCOUNTER → 2020-10-26 12:59 | Outpatient (BNVA) | payer MEDICARE, MEDICAID, OTHER, SELFPAY ==
[2020-10-07 16:45] VITALS: BP 126/89; BMI 62.0
== END ==
PROVIDERS: Visit Provider Nurse Practitioner Psychiatric/Mental Health
DX: F25.1 Schizoaffective disorder, depressive type (principal); F12.20 Cannabis dependence, uncomplicated; F43.12 Post-traumatic stress disorder, chronic
CPT/HCPCS: 99214

== ENCOUNTER → 2020-12-15 14:28 | Outpatient (BNVA) | payer MEDICARE, MEDICAID, SELFPAY ==
[2020-10-07 16:45] VITALS: BP 126/89; BMI 62.0
== END ==
PROVIDERS: Visit Provider Family Medicine Adult Medicine
DX: E11.9 Type 2 diabetes mellitus without complications (principal); E66.01 Morbid (severe) obesity due to excess calories; I50.9 Heart failure, unspecified; Z68.44 Body mass index [BMI] 60.0-69.9, adult
CPT/HCPCS: 80053; 83036

== ENCOUNTER → 2020-12-22 09:55 | Outpatient (BNVA) | payer MEDICARE, MEDICAID, SELFPAY ==
[2020-10-07 16:45] VITALS: BP 126/89; BMI 62.0
== END ==
PROVIDERS: Referring Provider Family Medicine Adult Medicine; Visit Provider Specialist
DX: G56.02 Carpal tunnel syndrome, left upper limb (principal); R20.0 Anesthesia of skin; R20.2 Paresthesia of skin; F17.290 Nicotine dependence, other tobacco product, uncomplicated
CPT/HCPCS: 95908

== ENCOUNTER 2021-01-12 16:04 | Emergency (ER) | payer MEDICARE, MEDICAID, SELFPAY ==
[2020-10-07 16:45] VITALS: BP 126/89; BMI 62.0
[2021-01-12 16:12] VITALS: BP 142/72; PULSE 96; RESP 20; TEMP 37.2; O2SAT 95; BMI 57.2
--- NOTE | 2021-01-12 16:27 | CTR_ITS ---
PROCEDURE INFORMATION: Exam: CT Abdomen And Pelvis With Contrast Exam date and time: 01/12/2021 4:27 PM Age: 55 years old Clinical indication: Abdominal pain; Prior surgery; Surgery type: Hyst; Additional info: Abd pain TECHNIQUE: Imaging protocol: Computed tomography of the abdomen and pelvis with contrast. Radiation optimization: All CT scans at this facility use at least one of these dose optimization techniques: automated exposure control; mA and/or kV adjustment per patient size (includes targeted exams where dose is matched to clinical indication); or iterative reconstruction. Contrast material: OMNI 300; Contrast volume: 95 ml; Contrast route: INTRAVENOUS (IV); COMPARISON: CT Abdomen/Pelvis Renal [id number] 07/15/2016 7:30 PM RADIATION DOSE METRICS: Total DLP (mGy-cm): 1769.03 FINDINGS: Liver: Normal. No mass. Gallbladder and bile ducts: Normal. No calcified stones. No ductal dilation. Pancreas: Normal. No ductal dilation. Spleen: Normal. No splenomegaly. Adrenal glands: Normal. No mass. Kidneys and ureters: Simple left renal cortical cyst in the lateral interpolar cortex. No dedicated follow-up. Negative hydronephrosis. No renal stones. Stomach and bowel: Unremarkable. No obstruction. No mucosal thickening. Appendix: No evidence of appendicitis. Intraperitoneal space: Unremarkable. No free air. No significant fluid collection. Vasculature: Unremarkable. No abdominal aortic aneurysm. Lymph nodes: Unremarkable. No enlarged lymph nodes. Urinary bladder: Decompressed bladder not further evaluated. Reproductive: Hysterectomy. Atrophic right ovary. Small cyst of left ovary measures 4.2 cm x 3.4 cm. Bones/joints: The lumbar spine demonstrates moderate discogenic and apophyseal joint degenerative changes at multiple levels. Soft tissues: Unremarkable. CT/CT abdomen pelvis w con* [id number] IMPRESSION: 1. Negative for acute abdominopelvic pathology. 2. Incidental finding of a small left ovarian cyst. 3. Further evaluation with prompt non-emergent ultrasound or prompt non-emergent MRI is recommended to characterize. (Reference: Olvin) COMMENTS: Consistent with the [employer]'s Incidental Findings Committee white paper (J Am Kenrick Radiol 2018): Any incidental renal lesion less than 1 cm or classified as too small to characterize, or any incidental cystic renal lesion characterized as simple-appearing, is likely benign. No follow-up imaging is recommended for these lesions per consensus recommendations based on imaging criteria. REFERENCES: Olvin et al. Management of Incidental Adnexal Findings on CT and MRI: A White Paper of the ACR Incidental Findings Committee, J Am Kenrick Radiol. 2019;17(2):248-254. Radiation Dose CTDIVOL = (mGy): DLP = 1769.03 (mGy-cm)
--- NOTE | 2021-01-12 16:40 | W.ED.FEMALGU ---
Documented by User: Jey Reyes DO 01/15/21 08:02 HPI - Female Genitourinary General: Chief complaint: Urogenital-Female Stated complaint: BLOOD IN URINE AND STOOL Time Seen by Provider: 01/12/21 16:09 History of Present Illness: HPI Narrative: 55-year-old female presents emergency room complaining of blood in urine and stool. She has noticed the last couple of days when voiding and with having bowel movements. States she discolored toilet water completely she denies any dysuria urgency or frequency no flank pain no fever sweats or chills she does take nearly 2 g of ibuprofen per day she states she has been doing it for years for problems with low back pain. Is not had any hematochezia or hematemesis she denies use of any other anticoagulants or nonsteroidals. She has not had any abdominal pain. Onset (ago): day(s) Severity: mild Vaginal discharge: none Vaginal bleeding: none Exacerbating factors: none Relieving factors: none Associated symptoms: Deny abdominal pain, short of breath, fevers/chills, headache(s), nausea, rash, seizures, syncope, vaginal discharge, weakness or other Treatment prior to arrival: none Date of Last Menstrual Period: 03/26/16 Review of Systems Const: Denies: fever(s), chills, body aches, change in appetite, fatigue or malaise ENMT: Denies: throat pain, ear or mastoid pain, nasal discharge or nasal congestion Card: Denies: syncope Resp: Denies: dyspnea, productive cough or non-productive cough GI: Denies: abdominal pain or nausea : Denies: vaginal discharge Skin/Breast: Denies: rash or pruritus Neuro: Denies: headache(s) [facility] PFSH: Medical History (Updated 01/12/21 @ 19:53 by Pablo Cesar MD) Asthma Cannabis dependence with current use CHF (congestive heart failure) Chronic back pain Chronic post-traumatic stress disorder COPD (chronic obstructive pulmonary disease) Diabetes type 2, controlled Diabetic feet Diabetic neuropathy associated with type 2 diabetes mellitus Hyperlipidemia Hypertension Mitral valve disease Morbid obesity with BMI of 60.0-69.9, adult Numbness and tingling of left upper extremity Numbness of left hand Peripheral edema Psychiatric care Schizoaffective disorder, depressive type with good prognostic features Seasonal allergies Tick bite of back Surgical History History of back surgery History of carpal tunnel surgery of right wrist History of hysterectomy Family History Mother Hypertension Hyperlipidemia Cancer Father Hypertension Hyperlipidemia Grandfather Diabetes Hyperlipidemia Cancer Grandmother Diabetes Hyperlipidemia Cancer Social History Quit status (tobacco): not considering quitting Second hand smoke exposure: Yes Alcohol intake: current Alcohol intake frequency: few times a week Alcohol type: wine Desire information about alcohol rehabilitation?: No Counseling given: No Desire information about substance/drug rehabilitation?: No Adopted: No Caregiver/support person: No Lives independently: Yes Household members: none Housing: Other Details: airstream Marital status: / Number of children: 0 Highest education level completed: Some College, No Degree service: No Current occupational status: disabled Current occupational exposures/hazards: No Pets and animals: Yes Pets & animals: dog(s) History of recent travel: No Leisure activites: music, fishing and other Leisure activities details: play with dog, cooking outside Sexually active: No Current gender identity: Female Clarissa/Restoration: [employer] Special clarissa needs: No Financial difficulty paying for basics: Not Very Hard Female Reproductive History: Date of last menstrual period: 03/26/16 Spontaneous abortions: No Physical Exam Const: COMMON NORMALS: no acute distress GENERAL APPEARANCE: cooperative and comfortable ORIENTATION/CONSCIOUSNESS: Yes awake, Yes oriented to person, Yes oriented to place and Yes oriented to time HENMT: COMMON NORMALS: normocephalic, atraumatic and hearing grossly normal bilaterally HEAD & SCALP: normocephalic and atraumatic Eye: COMMON NORMALS: Equal, round and reactive pupils present, EOMs intact bilaterally, conjunctivae normal and no scleral icterus CONJUNCTIVA: Yes conjunctivae normal PUPIL: Yes Equal, round and reactive pupils present Neck/C-Spine: COMMON NORMALS: full ROM, no lymphadenopathy, supple and no JVD Lymph: LYMPHATIC: no lymphadenopathy noted and no lymphedema noted Resp: COMMON NORMALS: normal respiratory effort, No retractions, No use of accessory muscles and clear to auscultation bilaterally AUSCULTATION: clear to auscultation bilaterally Cardio: COMMON NORMALS: no JVD, regular rate, regular rhythm and No murmurs present (Cardio) RATE: regular rate RHYTHM: regular rhythm GI: COMMON NORMALS: No hepatosplenomegaly present AUSCULTATION: Yes normoactive bowel sounds PALPATION: Yes Tenderness to palpation present (GI) (Mild suprapubic), No Guarding due to palpation present (GI) and Yes No hepatosplenomegaly present Extremity: COMMON NORMALS: normal to inspection, capillary refill normal, no clubbing, cyanosis or edema, no calf tenderness and no pedal edema Neuro: SENSORIUM/ORIENTATION: Yes oriented to person, Yes oriented to place and Yes oriented to time Skin: COMMON NORMALS: no rashes or lesions noted GENERAL SKIN EXAM: no rashes or lesions noted Course Vital Signs: Vital signs: Vital Signs Temperature 99.0 F 01/12/21 20:04 Pulse Rate 87 01/12/21 20:04 Respiratory Rate 18 01/12/21 20:04 Blood Pressure 139/102 01/12/21 20:04 Pulse Oximetry 96 01/12/21 20:04 MDM - Female MDM Narrative: Medical decision making narrative: Care turned over to Dr. Cesar at change of shift see his notes for final diagnosis and disposition. Lab Data: Labs: Lab Results 01/12/21 01/12/21 01/12/21 16:30 16:30 17:40 WBC 20.3 10^3/uL H 10 ^3/uL (4.0-10.0) RBC 4.57 10^6/uL 10^6 /uL (4.1-5.3) Hgb 14.0 g/dL g/dL (11.5-15.3) Hct 43.0 % % (37.0-47.0) MCV 94.1 fl fl (81-99) MCH 30.6 pg pg (28.0-34.0) MCHC 32.6 g/dL g/dL (30.0-36.0) RDW 14.1 % % (12.1-15.1) Plt Count 158 10^3/cmm 10^3 /cmm (130-400) MPV 10.5 fL H fL (7.4-10.4) Neut % (Auto) 49.2 % % Lymph % (Auto) 13.5 % % Glasscock % (Auto) 2.7 % % Eos % (Auto) 33.4 % % Baso % (Auto) 0.6 % % Neut # (Auto) 10.01 10^3/uL H 1 0^3/uL (1.8-7.7) Lymph # (Auto) 2.8 10^3/uL 10^3/ uL (0.8-4.8) Glasscock # (Auto) 0.5 10^3/uL 10^3/ uL (0.2-0.9) Eos # (Auto) 6.8 10^3/uL H 10^ 3/uL (0.0-0.8) Baso # (Auto) 0.1 10^3/uL 10^3/ uL (0.0-0.1) Nucleated RBC % (a uto) 0 % % Nucleated RBCs # 0.0 /100WBC /100W BC Sodium 138 mmol/L mmol/L (136-145) Potassium 3.8 mmol/L mmol/L (3.5-5.1) Chloride 98 mmol/L mmol/L (98-107) Carbon Dioxide 28 mmol/L mmol/L (22-29) Anion Gap 15.8 (5-19) BUN 10 mg/dL mg/dL (6-20) Creatinine 0.6 mg/dL mg/dL (0.5-0.9) GFR Calculation 103.8 mL/min mL/m in (90-130) Glucose 133 mg/dL H mg/dL (65-115) Calculated Osmolal ity 287 mOsm/kg mOsm/ kg (285-295) Calcium 9.2 mg/dL mg/dL (8.5-10.5) Total Bilirubin 0.2 mg/dL mg/dL (0.15-1.2) AST 16 U/L U/L (0-32) ALT 17 U/L U/L (0-33) Alkaline Phosphata se 75 IU/L IU/L (35-105) Total Protein 6.5 g/dL L g/dL (6.6-8.7) Albumin 4.0 g/dL g/dL (3.5-5.2) Globulin 2.5 g/dL g/dL (1.3-4.6) Urine Color Yellow (Yellow) Urine Appearance Clear (CLEAR) Urine pH 6.5 (5-7) Ur Specific Gravit y 1.005 (1.005-1.030) Urine Protein Neg (Negative) Urine Glucose (UA) Norm (Normal) Urine Ketones Negative (Negative) Urine Blood Neg (Negative) Urine Nitrate Negative (Negative) Urine Bilirubin Neg (Negative) Urine Urobilinogen Norm mg/dL mg/dL (Negative) Ur Leukocyte Libby ase Negative (Negative) Discharge Plan Discharge Patient Disposition: Home Clinical Impression: Blood in stool, Hematuria Condition: Stable Prescriptions: New Augmentin 875-125 mg tablet 1 tab PO BID Qty: 14 RF: 0 No Action (DME) Blood Glucose Test Strip See Rx Instructions .ROUTE .MEDSUPPLY Qty: 50 RF: 11 (DME) blood-glucose meter [Blood Glucose Monitoring] Kit See Rx Instructions .ROUTE .MEDSUPPLY Qty: 1 RF: 0 alcohol swabs Pads, Medicated 1 pad topical TID PRN (Reason: as needed to check blood sugar) 30 Days Qty: 100 RF: 11 (DME) Cock Up Splint See Rx Instructions .ROUTE .MEDSUPPLY Qty: 1 RF: 0 fluoxetine [Prozac] 40 mg capsule 40 mg PO QAM Qty: 90 RF: 2 Advair Diskus 250-50 mcg/dose blister with device 1 inh INHALATION BID@08,18 90 Days Qty: 180 RF: 3 fluticasone propionate 50 mcg/actuation spray,suspension 1 spray INTRANASAL BID@08,22 90 Days Qty: 48 RF: 3 furosemide 40 mg tablet 40 mg PO DAILY PRN (Reason: leg swelling) Qty: 90 RF: 3 gabapentin 600 mg tablet 600 mg PO TID 90 Days Qty: 270 RF: 3 (DME) lancets Misc See Rx Instructions .ROUTE .MEDSUPPLY Qty: 100 RF: 11 metformin 500 mg tablet 500 mg PO BID 90 Days Qty: 180 RF: 3 Combivent Respimat 20-100 mcg/actuation mist 1 puff inhalation Q6H PRN (Reason: shortness of breath or wheezing) 90 Days Qty: 12 RF: 3 multivitamin Tablet 1 tab PO DAILY@08 RF: 0 Kratom Powder See Rx Instructions .ROUTE .COMPLEX RF: 0 risperidone 1 mg Tablet 1 mg PO BEDTIME RF: 0 Claritin 10 mg Tablet 10 mg PO QAM RF: 0 Lipitor 40 mg tablet 40 mg PO BEDTIME RF: 0 amlodipine 10 mg tablet 10 mg PO QAM RF: 0 Lidoderm 5 % adhesive patch,medicated 1 patch topical Q12H PRN (Reason: Pain) RF: 0 ibuprofen 200 mg tablet 800 mg PO .TID TO QID RF: 0 lisinopril-hydrochlorothiazide 20-25 mg tablet 1 tab PO QAM RF: 0 cetirizine 10 mg capsule 10 mg PO BEDTIME RF: 0 Discharge Orders: Discharge ED (Routine); Ordered 01/12/21 Ordered By: Pablo Cesar Referrals: Richard Ingram MD [Primary Care Provider] - Winston Ramos MD [Physician] - 1-3 days Discharge Diet: Advance as tolerated Discharge Activity: Resume usual activity Patient Instructions: Hematuria (ED) Coding Level of Care Code ED Electronic Integrated Systems Mechanic for Chg Fwd Exam Comprehensive Documented by User: Pablo Cesar MD 01/12/21 20:01 HPI - Female Genitourinary General: Chief complaint: Urogenital-Female Stated complaint: BLOOD IN URINE AND STOOL Time Seen by Provider: 01/12/21 16:09 [facility] ED PFSH: Medical History (Updated 01/12/21 @ 19:53 by Pablo Cesar MD) Asthma Cannabis dependence with current use CHF (congestive heart failure) Chronic back pain Chronic post-traumatic stress disorder COPD (chronic obstructive pulmonary disease) Diabetes type 2, controlled Diabetic feet Diabetic neuropathy associated with type 2 diabetes mellitus Hyperlipidemia Hypertension Mitral valve disease Morbid obesity with BMI of 60.0-69.9, adult Numbness and tingling of left upper extremity Numbness of left hand Peripheral edema Psychiatric care Schizoaffective disorder, depressive type with good prognostic features Seasonal allergies Tick bite of back Surgical History History of back surgery History of carpal tunnel surgery of right wrist History of hysterectomy Family History Mother Hypertension Hyperlipidemia Cancer Father Hypertension Hyperlipidemia Grandfather Diabetes Hyperlipidemia Cancer Grandmother Diabetes Hyperlipidemia Cancer Social History Quit status (tobacco): not considering quitting Second hand smoke exposure: Yes Alcohol intake: current Alcohol intake frequency: few times a week Alcohol type: wine Desire information about alcohol rehabilitation?: No Counseling given: No Desire information about substance/drug rehabilitation?: No Adopted: No Caregiver/support person: No Lives independently: Yes Household members: none Housing: Other Details: [employer] Marital status: / Number of children: 0 Highest education level completed: Some College, No Degree service: No Current occupational status: disabled Current occupational exposures/hazards: No Pets and animals: Yes Pets & animals: dog(s) History of recent travel: No Leisure activites: music, fishing and other Leisure activities details: play with dog, cooking outside Sexually active: No Current gender identity: Female Clarissa/Restoration: [employer] Special clarissa needs: No Financial difficulty paying for basics: Not Very Hard Course Vital Signs: Vital signs: Vital Signs Temperature 99.0 F 01/12/21 20:04 Pulse Rate 87 01/12/21 20:04 Respiratory Rate 18 01/12/21 20:04 Blood Pressure 139/102 01/12/21 20:04 Pulse Oximetry 96 01/12/21 20:04 MDM - Female MDM Narrative: Medical decision making narrative: Patient presents here with blood in her stool along with hematuria she does have a slightly elevated white count CT shows no acute findings. We will start her on Augmentin for possible mild diverticulitis. We will get her follow-up with surgery for likely colonoscopy. She is well-appearing here and exam at discharge benign she is to follow-up as scheduled return if worsening. Lab Data: Labs: Lab Results 01/12/21 01/12/21 01/12/21 16:30 16:30 17:40 WBC 20.3 10^3/uL H 10 ^3/uL (4.0-10.0) RBC 4.57 10^6/uL 10^6 /uL (4.1-5.3) Hgb 14.0 g/dL g/dL (11.5-15.3) Hct 43.0 % % (37.0-47.0) MCV 94.1 fl fl (81-99) MCH 30.6 pg pg (28.0-34.0) MCHC 32.6 g/dL g/dL (30.0-36.0) RDW 14.1 % % (12.1-15.1) Plt Count 158 10^3/cmm 10^3 /cmm (130-400) MPV 10.5 fL H fL (7.4-10.4) Neut % (Auto) 49.2 % % Lymph % (Auto) 13.5 % % Glasscock % (Auto) 2.7 % % Eos % (Auto) 33.4 % % Baso % (Auto) 0.6 % % Neut # (Auto) 10.01 10^3/uL H 1 0^3/uL (1.8-7.7) Lymph # (Auto) 2.8 10^3/uL 10^3/ uL (0.8-4.8) Glasscock # (Auto) 0.5 10^3/uL 10^3/ uL (0.2-0.9) Eos # (Auto) 6.8 10^3/uL H 10^ 3/uL (0.0-0.8) Baso # (Auto) 0.1 10^3/uL 10^3/ uL (0.0-0.1) Nucleated RBC % (a uto) 0 % % Nucleated RBCs # 0.0 /100WBC /100W BC Sodium 138 mmol/L mmol/L (136-145) Potassium 3.8 mmol/L mmol/L (3.5-5.1) Chloride 98 mmol/L mmol/L (98-107) Carbon Dioxide 28 mmol/L mmol/L (22-29) Anion Gap 15.8 (5-19) BUN 10 mg/dL mg/dL (6-20) Creatinine 0.6 mg/dL mg/dL (0.5-0.9) GFR Calculation 103.8 mL/min mL/m in (90-130) Glucose 133 mg/dL H mg/dL (65-115) Calculated Osmolal ity 287 mOsm/kg mOsm/ kg (285-295) Calcium 9.2 mg/dL mg/dL (8.5-10.5) Total Bilirubin 0.2 mg/dL mg/dL (0.15-1.2) AST 16 U/L U/L (0-32) ALT 17 U/L U/L (0-33) Alkaline Phosphata se 75 IU/L IU/L (35-105) Total Protein 6.5 g/dL L g/dL (6.6-8.7) Albumin 4.0 g/dL g/dL (3.5-5.2) Globulin 2.5 g/dL g/dL (1.3-4.6) Urine Color Yellow (Yellow) Urine Appearance Clear (CLEAR) Urine pH 6.5 (5-7) Ur Specific Gravit y 1.005 (1.005-1.030) Urine Protein Neg (Negative) Urine Glucose (UA) Norm (Normal) Urine Ketones Negative (Negative) Urine Blood Neg (Negative) Urine Nitrate Negative (Negative) Urine Bilirubin Neg (Negative) Urine Urobilinogen Norm mg/dL mg/dL (Negative) Ur Leukocyte Libby ase Negative (Negative) Imaging Data: CT Abd/Pel: Attestation: I personally reviewed and interpreted this imaging study as follows: Radiologist's impression: [employer] [address] [address] Scan Report Signed Patient: Beryl Mclain Unit #: [id number] : 1965 Age/Sex: 55 / F ADM Date: 01/12/21 Loc: ER Room/Bed: Attending Dr: Ordering Provider/Ordering MD: Jey Reyes DO Date of Service: 01/12/21 Procedure(s): CT abdomen pelvis w con* [id number] Accession Number(s): [id number] Report Number: [id number] PROCEDURE INFORMATION: Exam: CT Abdomen And Pelvis With Contrast Exam date and time: 01/12/2021 4:27 PM Age: 55 years old Clinical indication: Abdominal pain; Prior surgery; Surgery type: Hyst; Additional info: Abd pain TECHNIQUE: Imaging protocol: Computed tomography of the abdomen and pelvis with contrast. Radiation optimization: All CT scans at this facility use at least one of these dose optimization techniques: automated exposure control; mA and/or kV adjustment per patient size (includes targeted exams where dose is matched to clinical indication); or iterative reconstruction. Contrast material: OMNI 300; Contrast volume: 95 ml; Contrast route: INTRAVENOUS (IV); COMPARISON: CT Abdomen/Pelvis Renal [id number] 07/15/2016 7:30 PM RADIATION DOSE METRICS: Total DLP (mGy-cm): 1769.03 FINDINGS: Liver: Normal. No mass. Gallbladder and bile ducts: Normal. No calcified stones. No ductal dilation. Pancreas: Normal. No ductal dilation. Spleen: Normal. No splenomegaly. Adrenal glands: Normal. No mass. Kidneys and ureters: Simple left renal cortical cyst in the lateral interpolar cortex. No dedicated follow-up. Negative hydronephrosis. No renal stones. Stomach and bowel: Unremarkable. No obstruction. No mucosal thickening. Appendix: No evidence of appendicitis. Intraperitoneal space: Unremarkable. No free air. No significant fluid collection. Vasculature: Unremarkable. No abdominal aortic aneurysm. Lymph nodes: Unremarkable. No enlarged lymph nodes. Urinary bladder: Decompressed bladder not further evaluated. Reproductive: Hysterectomy. Atrophic right ovary. Small cyst of left ovary measures 4.2 cm x 3.4 cm. Bones/joints: The lumbar spine demonstrates moderate discogenic and apophyseal joint degenerative changes at multiple levels. Soft tissues: Unremarkable. CT/CT abdomen pelvis w con* [id number] IMPRESSION: 1. Negative for acute abdominopelvic pathology. 2. Incidental finding of a small left ovarian cyst. 3. Further evaluation with prompt non-emergent ultrasound or prompt non-emergent MRI is recommended to characterize. (Reference: Olvin) COMMENTS: Consistent with the [employer]'s Incidental Findings Committee white paper (J Am Kenrick Radiol 2018): Any incidental renal lesion less than 1 cm or classified as too small to characterize, or any incidental cystic renal lesion characterized as simple-appearing, is likely benign. No follow-up imaging is recommended for these lesions per consensus recommendations based on imaging criteria. REFERENCES: Olvin et al. Management of Incidental Adnexal Findings on CT and MRI: A White Paper of the ACR Incidental Findings Committee, J Am Kenrick Radiol. 2019;17(2):248-254. Radiation Dose CTDIVOL = (mGy): DLP = 1769.03 (mGy-cm) Dictated By: Frenando Conti Signed By: Fernando Conti Signed Date/Time: 01/12/211808 DD/ 26 Discharge Plan Discharge Patient Disposition: Home Clinical Impression: Blood in stool, Hematuria Condition: Stable Prescriptions: New Augmentin 875-125 mg tablet 1 tab PO BID Qty: 14 RF: 0 No Action (DME) Blood Glucose Test Strip See Rx Instructions .ROUTE .MEDSUPPLY Qty: 50 RF: 11 (DME) blood-glucose meter [Blood Glucose Monitoring] Kit See Rx Instructions .ROUTE .MEDSUPPLY Qty: 1 RF: 0 alcohol swabs Pads, Medicated 1 pad topical TID PRN (Reason: as needed to check blood sugar) 30 Days Qty: 100 RF: 11 (DME) Cock Up Splint See Rx Instructions .ROUTE .MEDSUPPLY Qty: 1 RF: 0 fluoxetine [Prozac] 40 mg capsule 40 mg PO QAM Qty: 90 RF: 2 Advair Diskus 250-50 mcg/dose blister with device 1 inh INHALATION BID@08,18 90 Days Qty: 180 RF: 3 fluticasone propionate 50 mcg/actuation spray,suspension 1 spray INTRANASAL BID@08,22 90 Days Qty: 48 RF: 3 furosemide 40 mg tablet 40 mg PO DAILY PRN (Reason: leg swelling) Qty: 90 RF: 3 gabapentin 600 mg tablet 600 mg PO TID 90 Days Qty: 270 RF: 3 (DME) lancets Misc See Rx Instructions .ROUTE .MEDSUPPLY Qty: 100 RF: 11 metformin 500 mg tablet 500 mg PO BID 90 Days Qty: 180 RF: 3 Combivent Respimat 20-100 mcg/actuation mist 1 puff inhalation Q6H PRN (Reason: shortness of breath or wheezing) 90 Days Qty: 12 RF: 3 multivitamin Tablet 1 tab PO DAILY@08 RF: 0 Kratom Powder See Rx Instructions .ROUTE .COMPLEX RF: 0 risperidone 1 mg Tablet 1 mg PO BEDTIME RF: 0 Claritin 10 mg Tablet 10 mg PO QAM RF: 0 Lipitor 40 mg tablet 40 mg PO BEDTIME RF: 0 amlodipine 10 mg tablet 10 mg PO QAM RF: 0 Lidoderm 5 % adhesive patch,medicated 1 patch topical Q12H PRN (Reason: Pain) RF: 0 ibuprofen 200 mg tablet 800 mg PO .TID TO QID RF: 0 lisinopril-hydrochlorothiazide 20-25 mg tablet 1 tab PO QAM RF: 0 cetirizine 10 mg capsule 10 mg PO BEDTIME RF: 0 Discharge Orders: Discharge ED (Routine); Ordered 01/12/21 Ordered By: Pablo Cesar Referrals: Richard Ingram MD [Primary Care Provider] - Winston Ramos MD [Physician] - 1-3 days Discharge Diet: Advance as tolerated Discharge Activity: Resume usual activity Patient Instructions: Hematuria (ED) Coding Level of Care Code ED Electronic Integrated Systems Mechanic for Chg Fwd Exam Comprehensive
--- NOTE | 2021-01-12 16:41 | PC.NURSE ---
pt states she regularly takes ibuprofen 2-3 times daily, 4/200mg tablets (800mg total)
[2021-01-12 16:42] LABS: Basophils # 0.1 10^3/uL (0.0-0.1); Basophils % 0.6 %; Eosinophils # 6.8 10^3/uL (0.0-0.8); Eosinophils % 33.4 %; Lymphocytes # 2.8 10^3/uL (0.8-4.8); Lymphocytes % 13.5 %; Mean Corpuscular HGB Conc 32.6 g/dL (30.0-36.0); Mean Corpuscular Hemoglobin 30.6 pg (28.0-34.0); Mean Corpuscular Volume 94.1 fl (81-99); Mean Platelet Volume 10.5 fL (7.4-10.4); Monocytes # 0.5 10^3/uL (0.2-0.9); Monocytes % 2.7 %; Neutrophils # 10.01 10^3/uL (1.8-7.7); Neutrophils % 49.2 %; Nucleated Red Blood Cells % 0 %; Platelet Count 158 10^3/cmm (130-400); Red Blood Count 4.57 10^6/uL (4.1-5.3); Red Cell Distribution Width 14.1 % (12.1-15.1); White Blood Count 20.3 10^3/uL (4.0-10.0)
--- NOTE | 2021-01-12 17:02 | PC.PHAR ---
pt states gets medications from [facility] they are closed to get med list from-pt states takes the medications entered-pt states takes zyrtec hs and clartin am
[2021-01-12 17:03] LABS: Alanine Aminotransferase 17 U/L (0-33); Alkaline Phosphatase 75 IU/L (35-105); Anion Gap 15.8 (5-19); Aspartate Amino Transferase 16 U/L (0-32); Blood Urea Nitrogen 10 mg/dL (6-20); Calcium 9.2 mg/dL (8.5-10.5); Carbon Dioxide 28 mmol/L (22-29); Chloride 98 mmol/L (98-107); Creatinine Clr Calc Pharmacy 150.5944; Globulin 2.5 g/dL (1.3-4.6); Glomerular Filtration Rate 103.8 mL/min (90-130); Glucose 133 mg/dL (65-115); Osmolality Calculated 287 mOsm/kg (285-295); Potassium 3.8 mmol/L (3.5-5.1); Sodium 138 mmol/L (136-145); Total Bilirubin 0.2 mg/dL (0.15-1.2); Total Protein 6.5 g/dL (6.6-8.7)
[2021-01-12] MEDS: iohexol 300 mg/mL 100 mL Btl IV (17:15)
[2021-01-12 17:58] LABS: Add Urine Microscopic? NO; Charge for UA Resulting for Rev
[2021-01-12 18:17] LABS: Urine Appearance Clear (CLEAR); Urine Color Yellow (Yellow); pH Urine 6.5 (5-7)
[2021-01-12 18:18] LABS: Bilirubin Urine Neg (Negative); Blood Urine Neg (Negative); Glucose Urine UA Norm (Normal); Ketones Urine Negative (Negative); Leukocyte Esterase Urine Negative (Negative); Nitrate Urine Negative (Negative); Protein Urine Neg (Negative); Specific Gravity, Urine 1.005 (1.005-1.030); Urobilinogen Urine Norm (Negative)
[2021-01-12 18:29] VITALS: BP 157/94; PULSE 87; RESP 15; O2SAT 98
--- NOTE | 2021-01-12 18:29 | XRR_ITS ---
PROCEDURE INFORMATION: Exam: XR Chest Exam date and time: 01/12/2021 6:29 PM Age: 55 years old Clinical indication: Shortness of breath; Additional info: SOB TECHNIQUE: Imaging protocol: XR of the chest. Views: 1 view. COMPARISON: [place] Chest 1 [place] [id number] 11/20/2017 8:30 PM FINDINGS: Lungs: Unremarkable. No consolidation. Pleural spaces: Unremarkable. No pleural effusion. No pneumothorax. Heart/Mediastinum: Unremarkable. No cardiomegaly. Bones/joints: Unremarkable. XR/XR chest 1V portable [id number] IMPRESSION: No acute findings. Radiation Dose CTDIVOL = (mGy): DLP = (mGy-cm)
[2021-01-12 19:28] VITALS: BP 161/109; PULSE 87; RESP 18; O2SAT 96
[2021-01-12 20:04] VITALS: BP 139/102; PULSE 87; RESP 18; TEMP 37.2; O2SAT 96
--- NOTE | 2021-01-13 08:31 | DCPLANNER ---
security project manager had message to schedule a follow up appointment for patient with general surgery. security project manager emailed patients information to Radha Palmer and Karena at [facility] General Surgery / ENT. Patients information will be printed and reviewed. Clinic will call patient with appointment information.
--- NOTE | 2021-01-14 12:23 | DCPLANNER ---
Patient has a follow up appointment scheduled for Sunday, January 17, 2021 at 2:[address] Ramos at [facility] General Surgery. Clinic will call patient with appointment information.
--- NOTE | 2021-02-03 08:15 | DCPLANNER ---
Patient had a follow up appointment scheduled for 01.17.[address] Ramos at general surgery - patient did attend appointment.
== END 2021-01-12 20:07 | disposition home or self-care (01) ==
PROVIDERS: Family Medicine; Emergency Provider Emergency Medicine; PCP Family Medicine Adult Medicine
DX: R31.9 Hematuria, unspecified (principal); K92.1 Melena; Z79.84 Long term (current) use of oral hypoglycemic drugs; I11.0 Hypertensive heart disease with heart failure; I50.9 Heart failure, unspecified; J44.9 Chronic obstructive pulmonary disease, unspecified; E11.9 Type 2 diabetes mellitus without complications; E78.5 Hyperlipidemia, unspecified; Z77.22 Contact with and (suspected) exposure to environmental tobacco smoke (acute) (chronic)
CPT/HCPCS: 71045; 74177; 80053; 81003; 85025; 99283; Q9967

== ENCOUNTER → 2021-01-26 12:51 | Outpatient (BNVA) | payer MEDICARE, MEDICAID, OTHER, SELFPAY ==
[2020-10-07 16:45] VITALS: BP 126/89; BMI 62.0
== END ==
PROVIDERS: Visit Provider Nurse Practitioner Psychiatric/Mental Health
DX: F25.1 Schizoaffective disorder, depressive type (principal); F43.12 Post-traumatic stress disorder, chronic; F12.20 Cannabis dependence, uncomplicated
CPT/HCPCS: 99214

== ENCOUNTER → 2021-02-28 11:56 | Outpatient (BNVA) | payer MEDICARE, SELFPAY ==
[2021-02-28 11:40] VITALS: BP 126/89; BMI 62.0
== END ==
PROVIDERS: PCP Family Medicine; Visit Provider Surgery
DX: Z01.812 Encounter for preprocedural laboratory examination (principal); Z20.822 Contact with and (suspected) exposure to COVID-19
CPT/HCPCS: 87635

== ENCOUNTER 2021-03-04 06:28 | Day surgery (SDC) | payer MEDICARE, MEDICAID, SELFPAY ==
[2020-10-07 16:45] VITALS: BP 126/89; BMI 62.0
[2021-02-28 11:40] VITALS: BP 126/89; BMI 62.0
[2021-03-02 15:45] VITALS: BMI 57.5
--- NOTE | 2021-03-04 07:19 | P.ANESASSM_ITS ---
Pre-Anesthetic Assessment Pre-Anesthetic Assessment: Height/Weight: Height 1.6 m Weight 147.418 kg Preop Diagnosis: Bloody diarrhea Proposed Procedure: Operation Date: 03/04/21 08:30 Proposed Procedures p Colonoscopy 17889 K92.1(Not Applicable) - Winston Ramos MD Familial anesthetic complications: Hard to put to sleep and wake up Was Beta Franklyn taken within 24 hours: N/A Was Clonidine taken within 24 hours: N/A Last intake: > 8 hrs Social: Social History: Tobacco and No alcohol Exam: Pre-Anes Outpt Exam: alert, oriented x 3, clear to auscultation bilaterally and regular rate & rhythm Airway: MP: 3 Dentition: False Pulmonary: Pulmonary: COPD, ROSS and Sleep apnea CV/HEM: CV/HEM: CHF and HTN Metabolic: Metabolic: DM, Hyperlipidemia and Morbid obesity Neuropsych: Neuropsych: 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) Anesthetic Plan: ASA status: 3 Anesthesia: MAC Risk of > 500 ml blood loss (7ml/kg in children): No PFSH Anesthesia PFSH: Medical History (Updated 02/03/21 @ 14:42 by Richard Ingram MD) Asthma Cannabis dependence with current use CHF (congestive heart failure) Chronic back pain Chronic post-traumatic stress disorder Constipation COPD (chronic obstructive pulmonary disease) Diabetes type 2, controlled Diabetic feet Diabetic neuropathy associated with type 2 diabetes mellitus Hyperlipidemia Hypertension Mitral valve disease Morbid obesity with BMI of 60.0-69.9, adult Peripheral edema Psychiatric care Schizoaffective disorder, depressive type with good prognostic features Seasonal allergies Tick bite of back Surgical History History of back surgery History of carpal tunnel surgery of right wrist History of hysterectomy Family History Mother Hypertension Hyperlipidemia Cancer Father Hypertension Hyperlipidemia Grandfather Diabetes Hyperlipidemia Cancer Grandmother Diabetes Hyperlipidemia Cancer Social History Quit status (tobacco): not considering quitting Second hand smoke exposure: Yes Alcohol intake: current Alcohol intake frequency: few times a week Alcohol type: wine Desire information about alcohol rehabilitation?: No Counseling given: No Desire information about substance/drug rehabilitation?: No Adopted: No Caregiver/support person: No Lives independently: Yes Household members: none Housing: [facility]: [facility] Marital status: / Number of children: 0 Highest education level completed: Some College, No Degree service: No Current occupational status: disabled Current occupational exposures/hazards: No Pets and animals: Yes Pets & animals: dog(s) History of recent travel: No Leisure activites: music, fishing and other Leisure activities details: play with dog, cooking outside Sexually active: No Current gender identity: Female Clarissa/Baptist: Jehovah'S Witness Special clarissa needs: No Financial difficulty paying for basics: Not Very Hard Female Reproductive History: Date of last menstrual period: 03/26/16 Spontaneous abortions: No Data Anesthesia Cardiac Studies: No Data to Display
--- NOTE | 2021-03-04 07:53 | W.PM.OPSFHP ---
Same Day Surgery H&P Indication for Procedure/HPI DATE OF PROCEDURE: March 04, 2021 CHIEF COMPLAINT/INDICATIONFOR SURGICAL PROCEDURE: Blood with stool PREOP DIAGNOSIS: Bloody diarrhea PLANNED PROCEDRUE: Operation Date: 03/04/21 08:30 Proposed Procedures p Colonoscopy 72585 K92.1(Not Applicable) - Winston Ramos MD 01/17/2021 This is a pleasant 55 years old female patient reports that she has a feeling of water gushing and ends up by having a liquidy bloody bowel movement and sometimes maroon in color. Patient denies history of peptic ulcer disease. This condition has been going on for quite some time and she is referred to my practice for consideration of a colonoscopy. Patient reports that she had a colonoscopy before few years and was reported as normal per her description. Diarrhea history; Patient reports history of diarrhea,bloody in nature, has been going on for quite some time. Patient denies history of recent travels, antibiotics, change in medications, questionable source of water, no history of sick contacts, no history of thyroid disorders. Patient undergone a CT scan of the abdomen pelvis 01/12/2021 1. Negative for acute abdominopelvic pathology. 2. Incidental finding of a small left ovarian cyst. 3. Further evaluation with prompt non-emergent ultrasound or prompt non-emergent MRI is recommended to characterize. (Reference: [facility]) 03/04/2021 Patient comes today for diagnostic colonoscopy ROS All systems have been reviewed negative except as all systems have been reviewed negative except as per the above or per problem list Medications/Allergies* Home Medications Medication Instructions Recorded Confirmed Type Kratom Powder See Rx Instructions .ROUTE .COMPLEX 03/12/20 03/04/21 History multivitamin 1 tab PO DAILY@08 03/12/20 03/04/21 History amlodipine 10 mg PO QAM 01/12/21 03/04/21 History atorvastatin [Lipitor] 40 mg PO BEDTIME 01/12/21 03/04/21 History cetirizine 10 mg PO BEDTIME 01/12/21 03/04/21 History ibuprofen 800 mg PO .TID TO QID 01/12/21 03/04/21 History lidocaine [Lidoderm] 1 patch TOPICAL Q12H PRN 01/12/21 03/04/21 History lisinopril-hydrochlorothiazide 1 tab PO QAM 01/12/21 03/04/21 History Allergies/Adverse Reactions Allergy/AdvReac Type Severity Reaction Status Date / Time bee venom protein (honey bee) Allergy Severe ALGY-Anaphy Verified 03/04/21 07:55 laxis tramadol AdvReac Mild tongue Verified 03/04/21 07:55 itching Pertinent History/Comorbid Conditions* Medical History (Updated 02/03/21 @ 14:42 by Richard Ingram MD) Asthma Cannabis dependence with current use CHF (congestive heart failure) Chronic back pain Chronic post-traumatic stress disorder Constipation COPD (chronic obstructive pulmonary disease) Diabetes type 2, controlled Diabetic feet Diabetic neuropathy associated with type 2 diabetes mellitus Hyperlipidemia Hypertension Mitral valve disease Morbid obesity with BMI of 60.0-69.9, adult Peripheral edema Psychiatric care Schizoaffective disorder, depressive type with good prognostic features Seasonal allergies Tick bite of back Surgical History (Updated 12/15/20 @ 14:18 by Richard Ingram MD) History of back surgery History of carpal tunnel surgery of right wrist History of hysterectomy Family History (Updated 09/24/19 @ 11:04 by Awa Watt LPN) Diabetes Grandfather Grandmother Hyperlipidemia Mother Father Grandfather Grandmother Cancer Mother Grandfather Grandmother Hypertension Mother Father Social History Quit status (tobacco): not considering quitting Second hand smoke exposure: Yes Alcohol intake: current Alcohol intake frequency: few times a week Alcohol type: wine Desire information about alcohol rehabilitation?: No Counseling given: No Desire information about substance/drug rehabilitation?: No Adopted: No Caregiver/support person: No Lives independently: Yes Household members: none Housing: Other Details: [employer] Marital status: / Number of children: 0 Highest education level completed: Some College, No Degree service: No Current occupational status: disabled Current occupational exposures/hazards: No Pets and animals: Yes Pets & animals: dog(s) History of recent travel: No Leisure activites: music, fishing and other Leisure activities details: play with dog, cooking outside Sexually active: No Current gender identity: Female Clarissa/Gnosticist: Christianity Special clarissa needs: No Financial difficulty paying for basics: Not Very Hard Pertinent Exam Findings alert, oriented x 3, regular rate & rhythm and procedure specific exam findings (Abdominal examination nontender nondistended soft) Recommendations Surgery/Procedure today Other Plans: Plan of care; After thorough history and physical examination and reviewing the chart, plan to perform diagnostic colonoscopy. I discussed with the patient in details the risks,benefits,alternatives and indications.The risk of aspiration, bleeding, soft tissue injury, perforation of the colon and other potential concomitant complications were explained to the patient in details,also the potential need for Laproscoy/Laparotomy to repair any related complications including but not limited to colectomy and or Closotomy.The patient understood this well and did agree to proceed. Rationale was carefully and clearly discussed with the patient.Appropriate informed consent have been reviewed and signed All questions have been answered and all concerns have been addressed to patient's satisfaction. Verbal and written Instructions were given to the patient for colonoscopy prep Coding Level of Care Code Acute [place] Guide for Andrea Coto
[2021-03-04] MEDS: sodium chloride 0.9% 1,000 ML 30 ML IV (08:01)
[2021-03-04 08:03] VITALS: BP 121/92; PULSE 82; RESP 18; TEMP 36.8; O2SAT 92
[2021-03-04 08:59] VITALS: BP 151/92; PULSE 89; RESP 20; TEMP 36.6; O2SAT 93
[2021-03-04 09:10] VITALS: BP 170/81; PULSE 84; RESP 18; O2SAT 94
--- NOTE | 2021-03-04 09:37 | ANE.PACU2 ---
Inpatient post-anesthesia follow up: Airway intact: Yes Vital signs: Temperature 97.8 F Pulse Rate 84 Respiratory Rate 18 Blood Pressure 170/81 Pulse Oximetry 94 Oxygen Delivery Me thod Room Air Oxygen Flow Rate Fraction of Inspir ed Oxygen Hydration adequate: Yes Mental status: Baseline
== END 2021-03-04 09:37 | disposition home or self-care (01) ==
PROVIDERS: PCP Family Medicine Adult Medicine; Visit Provider Surgery
PROC: 0DJD8ZZ Inspection of Lower Intestinal Tract, Via Natural or Artificial Opening Endoscopic (ICD-10-PCS; CPT 45378; principal; 2021-03-04 08:30)
DX: K52.9 Noninfective gastroenteritis and colitis, unspecified (principal); J44.9 Chronic obstructive pulmonary disease, unspecified; I11.0 Hypertensive heart disease with heart failure; I50.9 Heart failure, unspecified; E11.9 Type 2 diabetes mellitus without complications; E78.5 Hyperlipidemia, unspecified; E66.01 Morbid (severe) obesity due to excess calories; Z68.43 Body mass index [BMI] 50.0-59.9, adult; Z86.73 Personal history of transient ischemic attack (TIA), and cerebral infarction without residual deficits; F17.200 Nicotine dependence, unspecified, uncomplicated; R19.7 Diarrhea, unspecified
CPT/HCPCS: 45378; 82274; 83630; 87493; 87506; 96360; J2704; J7030

== ENCOUNTER → 2021-04-19 07:27 | Outpatient (BNVA) | payer MEDICARE, MEDICAID, SELFPAY ==
[2021-02-28 11:40] VITALS: BP 126/89; BMI 62.0
== END ==
PROVIDERS: PCP Family Medicine Adult Medicine; Visit Provider Nurse Practitioner Psychiatric/Mental Health
DX: F25.1 Schizoaffective disorder, depressive type (principal); F12.20 Cannabis dependence, uncomplicated; F43.12 Post-traumatic stress disorder, chronic
CPT/HCPCS: 99214

== ENCOUNTER → 2021-05-10 13:54 | Outpatient (BNVA) | payer MEDICARE, MEDICAID, SELFPAY ==
[2021-02-28 11:40] VITALS: BP 126/89; BMI 62.0
== END ==
PROVIDERS: PCP Family Medicine Adult Medicine; Visit Provider Family Medicine Adult Medicine
DX: J45.20 Mild intermittent asthma, uncomplicated (principal); E11.9 Type 2 diabetes mellitus without complications; Z78.9 Other specified health status; I10 Essential (primary) hypertension; E66.01 Morbid (severe) obesity due to excess calories; Z68.44 Body mass index [BMI] 60.0-69.9, adult; E78.5 Hyperlipidemia, unspecified; I50.9 Heart failure, unspecified; Z00.00 Encounter for general adult medical examination without abnormal findings; J44.9 Chronic obstructive pulmonary disease, unspecified
CPT/HCPCS: 80053; 82306; 83036

== ENCOUNTER 2021-07-19 | Outpatient (CLI) | payer MEDICARE, MEDICAID, SELFPAY ==
[2021-02-28 11:40] VITALS: BP 126/89; BMI 62.0
== END 2021-07-19 00:01 | disposition home or self-care (01) ==
LOC: RADSHAW 08-23 09:29
PROVIDERS: PCP Family Medicine Adult Medicine; Visit Provider Family Medicine Adult Medicine
DX: F25.1 Schizoaffective disorder, depressive type (principal); F43.12 Post-traumatic stress disorder, chronic; F12.20 Cannabis dependence, uncomplicated
CPT/HCPCS: 99214